=== PATIENT | male | born 1960 | race African-American/Black ===

== ENCOUNTER 2020-07-18 10:08 | Emergency (ER) | payer SELFPAY, OTHER ==
[2020-07-18 12:53] LABS: Absolute Lymphocytes (CBC) 1.3 K/uL (0.7-4.9); Basophils % 0.8 % (0-1.3); Hematocrit 40.9 % (39.6-49.0); MPV 6.4 fL (7.6-11.3); RBC Red Blood Cell Count 4.43 M/uL (4.33-5.43)
[2020-07-18 13:00] LABS: Protime INR 1.2
[2020-07-18] MEDS ORDERED: dexAMETHasone 10 MG/ML VIAL ONE (13:00)
[2020-07-18] MEDS ORDERED: NA CHLORIDE 0.9% 1,000 ML ONE (13:00)
[2020-07-18 13:21] LABS: ALT/SGPT 20 U/L (12-78); AST/SGOT 20 U/L (15-37); Albumin 2.7 g/dL (3.4-5.0); Alkaline Phosphatase 92 U/L (45-117); BUN Blood Urea Nitrogen 10 mg/dL (7-18); Bicarbonate 28 mmol/L (21-32); Bilirubin Direct 0.4 mg/dL (0-0.2); Glucose Level 119 mg/dL (74-106); Potassium 3.6 mmol/L (3.5-5.1); Protein, Total 8.3 g/dL (6.4-8.2); Sodium Level 138 mmol/L (136-145); Troponin (Emerg Dept Use Only) < 0.02 ng/mL (0.0-0.045)
--- NOTE | 2020-07-18 13:37 | RAD REPORT ---
EXAM DESCRIPTION: CT - Chest For Pe Angio - 07/18/2020 1:22 pm CLINICAL HISTORY: COVID positive, in bed for the last 2 weeks ;Chest pain;Dyspnea COMPARISON: No comparisons TECHNIQUE: Dynamically enhanced 3 mm thick images of the chest were obtained during administration o f approximately 150mL Isovue 370 IV contrast. Coronal and oblique MIP reconstruction images were gene rated and reviewed. Exam utilizes a protocol to evaluate the pulmonary arterial tree. All CT scans are performed using dose optimization technique as appropriate and may include automated exposure control or mA/KV adjustment according to patient size. FINDINGS: Pulmonary artery contrast bolus was not optimal but felt to be sufficient for diagnostic p urposes. There are no pulmonary emboli identifiable. The aorta as imaged shows no acute or suspicious finding. No pericardial thickening or effusion. Interstitial and scattered alveolar opacities are present in each upper lobe in a peripheral distribu tion. Interstitial and alveolar lower lobe opacification is present more diffusely throughout each lo be. Little middle lobe involvement identifiable. This pattern is certainly consistent with the COVID- 19 pneumonia diagnosis. No pleural effusion or pleural thickening. No mediastinal or hilar suspicious masses. Small reactive lymph nodes are present. No chest wall mass es or abnormal axillary lymphadenopathy. IMPRESSION: No pulmonary emboli identified. Bilateral lung field interstitial and patchy alveolar opacification.Pattern is commonly described in COVID-19 pneumonia.
--- NOTE | 2020-07-18 15:11 | ER ---
Nurse's Notes [facility] Name: Jose Pino Age: 60 yrs Sex: Male : 1960 Arrival Date: 07/18/2020 Time: 10:09 Bed 24 Private MD: Diagnosis: Coronavirus infection, unspecified;Pneumonia, unspecified organism Presentation: 07/18 10:19 Chief complaint: Patient states: COVID+, collection date 07/11/2020. Retested 2 days ago, ca1 pending results. Been in bed for 2 weeks, feels very weak, no appetite. Reports N/V, SOB at rest, chest pains, L side, mostly under the L arm, body aches, cough, fever on/off. Coronavirus screen: Client denies travel out of the [place] in the last 14 days. cough unrelated to allergies, difficulty breathing, fatigue, fever, headache, nausea, shortness of breath, vomiting. Client presents with at least one sign or symptom that may indicate coronavirus-19. Standard/surgical mask placed on the client. Provider contacted for isolation considerations. At this time, the client does not indicate any symptoms associated with coronavirus-19. Client reports previous positive COVID test result. Date of collection: July 11, 2020 The client indicates previous COVID test results are pending. Date of collection: July 16, 2020 Staff notified of need for isolation. Ebola Screen: Patient negative for fever greater than or equal to 101.5 degrees Fahrenheit, and additional compatible Ebola Virus Disease symptoms Patient denies exposure to infectious person. Patient denies travel to an Ebola-affected area in the 21 days before illness onset. No symptoms or risks identified at this time. Initial Sepsis Screen: Does the patient meet any 2 criteria? No. Patient's initial sepsis screen is negative. Does the patient have a suspected source of infection? No. Patient's initial sepsis screen is negative. Risk Assessment: Do you want to hurt yourself or someone else? Patient reports no desire to harm self or others. 10:19 Method Of Arrival: Wheelchair ca1 10:19 Acuity: MARYANNE 3 ca1 Historical: - Allergies: 10:23 No Known Allergies; ca1 - Home Meds: 10:23 None [Active]; ca1 - PMHx: 10:23 None; ca1 - PSHx: 10:23 None; ca1 - Immunization history:: Adult Immunizations up to date. - Social history:: Smoking status: Patient reports the use of cigarette tobacco products, denies chronic smoking, but will smoke occasionally. - Family history:: not pertinent. - Hospitalizations: : No recent hospitalization is reported. Screenin:28 Abuse screen: Denies threats or abuse. Denies injuries from another. Nutritional jl7 screening: No deficits noted. Tuberculosis screening: No symptoms or risk factors identified. Fall Risk None identified. Assessment: 11:28 General: Appears in no apparent distress. uncomfortable, ill, Behavior is calm, jl7 cooperative, appropriate for age. Pain: Complains of pain in "All over" Pain does not radiate. Quality of pain is described as aching, Pain began 2 weeks ago Is continuous. Neuro: Level of Consciousness is awake, alert, obeys commands, Oriented to person, place, time, situation. Cardiovascular: Patient's skin is warm and dry. Rhythm is regular. Respiratory: Airway is patent Respiratory effort is even, labored, Respiratory pattern is symmetrical, tachypnea. GI: Reports diarrhea, nausea, vomiting. Derm: Skin is dry, Skin is normal, Skin temperature is warm. 13:21 Reassessment: Patient and/or family updated on plan of care and expected duration. Pain ls4 level reassessed. Patient is alert, oriented x 3, equal unlabored respirations, skin warm/dry/pink. Vital Signs: 10:19 BP 122 / 75; Pulse 90; Resp 20 S; Temp 98.5(TE); Pulse Ox 95% on R/A; Weight 86.18 kg ca1 (R); Height 5 ft. 10 in. (177.80 cm) (R); 11:28 BP 145 / 82; Pulse 82; Resp 21 S; Temp 99.7(O); Pulse Ox 98% on R/A; jl7 12:30 BP 128 / 77; Pulse 82; Resp 22; Pulse Ox 97% on R/A; Pain 00/10; ls4 14:55 BP 141 / 86; Pulse 89; Resp 20; Pulse Ox 99% on R/A; Pain 0/10; ls4 10:19 Body Mass Index 27.26 (86.18 kg, 177.80 cm) ca1 ED Course: 10:09 Patient arrived in ED. as 10:23 Triage completed. ca1 10:23 Arm band placed on right wrist. EKG completed in triage. Results shown to MD. ca1 11:15 Romero Seymour MD is Attending Physician. rn 11:21 Gemma Vivas, RN is Primary Nurse. jl7 11:28 Patient has correct armband on for positive identification. Placed in gown. Bed in low jl7 position. Call light in reach. Side rails up X 1. Pulse ox on. NIBP on. Warm blanket given. 11:28 Patient maintains SpO2 saturation greater than 95% on room air. jl7 12:02 Report given to JUSTEN Deleon. jl7 12:30 Initial lab(s) drawn, EKG done, by ED staff, reviewed by Romero Seymour MD X-ray(s) taken. ls4 Inserted saline lock: 18 gauge in right antecubital area, using aseptic technique. Blood collected. 13:21 No provider procedures requiring assistance completed. ls4 13:22 CT Chest For PE Angio In Process Unspecified. EDMS 14:35 XRAY Chest (1 view) Sent. ls4 15:19 XRAY Chest (1 view) In Process Unspecified. EDMS Administered Medications: 12:49 Drug: NS 0.9% 1000 ml Route: IV; Rate: 1000 ml; Site: right antecubital; ls4 12:50 Drug: Decadron - Dexamethasone 10 mg Route: IVP; Site: right antecubital; ls4 Outcome: 15:10 Discharge ordered by . rn 16:13 Patient left the ED. ls4 Signatures: Dispatcher [employer] EDMS Yakelin Singh Roman, MD MD rn Leal, Jahala, JUSTEN RN jl7 Adrienne Pepe, JUSTEN RN ls4 Leela Zapata RN RN ca1
--- NOTE | 2020-07-18 15:11 | EDPHYS ---
Physician Documentation [facility] Name: Jose Pino Age: 60 yrs Sex: Male : 1960 Arrival Date: 07/18/2020 Time: 10:09 Bed 24 Private MD: ED Physician Romero Seymour HPI: 07/18 12:28 This 60 yrs old Black Male presents to ER via Wheelchair with complaints of Chest Pain, rn Breathing Difficulty - covid +. 12:28 The patient or guardian reports chest pain that is located primarily in the left rn lateral anterior chest. Onset: 2 week(s) ago. The pain does not radiate. Associated signs and symptoms: Pertinent positives: cough, shortness of breath. The chest pain is described as sharp. Duration: The patient or guardian reports multiple episodes, that are intermittent. Modifying factors: The symptoms are alleviated by nothing. the symptoms are aggravated by exertion. Severity of pain: At its worst the pain was moderate in the emergency department the pain is unchanged. The patient has not experienced similar symptoms in the past. Reports COVID-19 +, 2 weeks of symptoms, getting worse, feeling dehydrated, + sob, + left sided chest pain with deep breath. NO chronic lung problems. NO hx of PE.. Historical: - Allergies: 10:23 No Known Allergies; ca1 - Home Meds: 10:23 None [Active]; ca1 - PMHx: 10:23 None; ca1 - PSHx: 10:23 None; ca1 - Immunization history:: Adult Immunizations up to date. - Social history:: Smoking status: Patient reports the use of cigarette tobacco products, denies chronic smoking, but will smoke occasionally. - Family history:: not pertinent. - Hospitalizations: : No recent hospitalization is reported. 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 Exam: 12:28 Constitutional: This is a well developed, well nourished patient who is awake, alert, rn appears generally weak Head/Face: Normocephalic, atraumatic. Cardiovascular: Regular rate and rhythm. No pulse deficits. Respiratory: + mild tachypnea, no retractions Abdomen/GI: soft, non-distended Skin: Dry, no cyanosis. MS/ Extremity: Pulses equal, no cyanosis. Neuro: Awake and alert, GCS 15 Vital Signs: 10:19 BP 122 / 75; Pulse 90; Resp 20 S; Temp 98.5(TE); Pulse Ox 95% on R/A; Weight 86.18 kg ca1 (R); Height 5 ft. 10 in. (177.80 cm) (R); 11:28 BP 145 / 82; Pulse 82; Resp 21 S; Temp 99.7(O); Pulse Ox 98% on R/A; jl7 12:30 BP 128 / 77; Pulse 82; Resp 22; Pulse Ox 97% on R/A; Pain 00/10; ls4 14:55 BP 141 / 86; Pulse 89; Resp 20; Pulse Ox 99% on R/A; Pain 0/10; ls4 10:19 Body Mass Index 27.26 (86.18 kg, 177.80 cm) ca1 MDM: 11:15 Patient medically screened. rn 15:08 Differential diagnosis: pneumonia, pulmonary embolus, COVID pneumonia, PE. Data rn reviewed: vital signs, nurses notes, lab test result(s), EKG, radiologic studies, CT scan, plain films, and as a result, I will discharge patient. Counseling: I had a detailed discussion with the patient and/or guardian regarding: the historical points, exam findings, and any diagnostic results supporting the discharge/admit diagnosis, lab results, radiology results, the need for outpatient follow up, to return to the emergency department if symptoms worsen or persist or if there are any questions or concerns that arise at home. Response to treatment: the patient's symptoms have mildly improved after treatment, and as a result, I will discharge patient. Special discussion: I discussed with the patient/guardian in detail that at this point there is no indication for admission to the hospital. It is understood, however, that if the symptoms persist or worsen the patient needs to return immediately for re-evaluation. ED course: Pt improved, reports feels better, CT PE neg for PE, + COVID pneumonia, no oxygen requirement, oxygen with exertion still 99%, will dc home with steroids and return precautions. Understands to quarantine.. 07/18 12:05 Order name: D-Dimer; Complete Time: 13:17 rn 07/18 12:05 Order name: Blood Culture Adult (2) rn 07/18 12:05 Order name: BMP; Complete Time: 13:41 rn 07/18 12:05 Order name: C-Reactive Protein; Complete Time: 13:41 rn 07/18 12:05 Order name: CBC with Diff; Complete Time: 13:17 rn 07/18 12:05 Order name: Ferritin; Complete Time: 13:41 rn 07/18 11:17 Order name: XRAY Chest (1 view) rn 07/18 12:05 Order name: Lactate; Complete Time: 13:17 rn 07/18 12:05 Order name: LFT's; Complete Time: 13:41 rn 07/18 12:05 Order name: Procalcitonin; Complete Time: 13:41 rn 07/18 12:05 Order name: PT-INR; Complete Time: 13:17 rn 07/18 12:05 Order name: Ptt, Activated; Complete Time: 13:17 rn 07/18 12:05 Order name: Troponin (emerg Dept Use Only); Complete Time: 13:41 rn 07/18 13:12 Order name: CREATININE WHOLE BLOOD; Complete Time: 13:17 EDMS 07/18 10:19 Order name: EKG; Complete Time: 10:19 ca1 07/18 10:19 Order name: EKG - Nurse/Tech; Complete Time: 10:19 ca1 07/18 12:05 Order name: Cardiac monitoring; Complete Time: 14:33 rn 07/18 12:05 Order name: Droplet/Contact Precautions; Complete Time: 14:33 rn 07/18 12:05 Order name: IV Start; Complete Time: 14:33 rn 07/18 12:05 Order name: Labs collected and sent; Complete Time: 14:34 rn 07/18 12:05 Order name: O2 Per Protocol; Complete Time: 14:34 rn 07/18 12:05 Order name: O2 Sat Monitoring; Complete Time: 14:34 rn 07/18 12:05 Order name: CT Chest For PE Angio; Complete Time: 13:41 rn Administered Medications: 12:49 Drug: NS 0.9% 1000 ml Route: IV; Rate: 1000 ml; Site: right antecubital; ls4 12:50 Drug: Decadron - Dexamethasone 10 mg Route: IVP; Site: right antecubital; ls4 Disposition: 07/18/20 15:10 Discharged to Home. Impression: Coronavirus infection, unspecified, Pneumonia, unspecified organism. - Condition is Stable. - Discharge Instructions: Community-Acquired Pneumonia, Adult, COVID-19. - Prescriptions for dexamethasone 6 mg Oral tablet - take 1 tablet by ORAL route once daily for 10 days; 10 tablet. Albuterol Sulfate 90 mcg/actuation - inhale 1-2 puff by INHALATION route every 4-6 hours; 1 Inhaler. - Medication Reconciliation Form, Thank You Letter, Antibiotic Education, Prescription Opioid Use form. - Follow up: Private Physician; When: As needed; Reason: Recheck today's complaints, Re-evaluation by your physician. - Problem is an ongoing problem. - Symptoms have improved. Signatures: Dispatcher [employer] EDMT Romero Seymour MD MD rn Stewart, Lisa, RN RN ls4 Jodi, Leela RN RN ca1 Corrections: (The following items were deleted from the chart) 16:13 15:10 07/18/2020 15:10 Discharged to Home. Impression: Coronavirus infection, ls4 unspecified; Pneumonia, unspecified organism. Condition is Stable. Forms are Medication Reconciliation Form, Thank You Letter, Antibiotic Education, Prescription Opioid Use. Follow up: Private Physician; When: As needed; Reason: Recheck today's complaints, Re-evaluation by your physician. Problem is an ongoing problem. Symptoms have improved. rn
--- NOTE | 2020-07-18 15:37 | RAD REPORT ---
EXAM DESCRIPTION: RAD - Chest Single View - 07/18/2020 3:19 pm CLINICAL HISTORY: COVID COMPARISON: CT chest same date TECHNIQUE: AP portable chest image was obtained 07/18/2020 3:19 pm . FINDINGS: Interstitial markings are prominent. Patchy alveolar opacities are present in both lung fi elds in a generally peripheral distribution. This is a common presentation for COVID-19 pneumonia. No dense consolidation. Heart and vasculature are normal. No measurable pleural effusion and no pneumot horax. No acute bony abnormality seen. No acute aortic findings suspected. IMPRESSION: Bilateral COVID-19 pneumonia pattern.
[2020-07-18 16:32] VITALS: TEMP 99.7
[2020-07-18 16:34] VITALS: BP 141/86; O2SAT 99
== END 2020-07-18 16:13 | disposition home or self-care (01) ==
LOC: ER 10:08
DX: U07.1 COVID-19 (principal); J18.9 Pneumonia, unspecified organism; F17.210 Nicotine dependence, cigarettes, uncomplicated
CPT/HCPCS: 36415; 71045; 71275; 80048; 80076; 82565; 82728; 83605; 84145; 84484; 85025; 85379; 85610; 85730; 86140; 87040; 93005; 96374; 99284; J1100; J7030; Q9967